=== PATIENT | female | born 1975 | race Caucasian/White ===

== ENCOUNTER → 2017-03-17 | Outpatient (CLI) | payer BC ==
[~2017-03-17] MED LIST: AMOXIL500 MG PO; BUPROBAN150 MG PO; FIORICET 50-301 EACH PO; HYDROCHLOROTH12.5 M3 PO; LABETALOL HCL100 MG PO; LORTAB 5-325 M1 EACH PO; MOTRIN800 MG PO; MULTIPLE VITAM1 EACH PO; PRILOSEC20 MG PO; SYNTHROID25 MCG PO; TOPAMAX100 MG PO; VICODIN,LORT1 TABLET PO; ZESTRIL,PRINIVI20 MG PO; ZOLOFT100 M1 PO; ZOLOFT100 MG PO; ZYRTEC10 M3 PO
== END | disposition home or self-care (01) ==
LOC: CDC 14:41
DX: I10 Essential (primary) hypertension (principal)
CPT/HCPCS: 93000

== ENCOUNTER 2017-03-28 05:30 | Day surgery (SDC) | payer BC ==
[~2017-03-28] VITALS: Ht 160 cm; Wt 99.8 kg
[~2017-03-28 05:30] MED LIST changes: +LEVOTHYROXINE50 MCG PO; +PROPRANOLOL HCL40 MG PO; +VITAMIN D5000 UNI1 PO
[2017-03-28 06:22] VITALS: BP 184/93
[2017-03-28 15:05] LABS: HEMATOCRIT 38.5 % (36.0-46.0); MCV 86.7 FL (83-99)
[2017-03-28 17:59] VITALS: BP 118/69
[2017-03-28 19:26] VITALS: BP 137/70
[2017-03-28 23:02] VITALS: BP 109/62
[2017-03-29 03:16] VITALS: BP 115/66
[2017-03-29 07:43] LABS: EOSINOPHIL (%) 0.2 % (0-5); HEMATOCRIT 33.5 % (36.0-46.0); IMMATURE GRANULOCYTE (%) 0.4 % (0.0-0.7); IMMATURE GRANULOCYTE COUNT 0.1 K/uL; INSTRUMENT ABS NEUTROPHIL CT 10.2 K/uL; LYMPHOCYTE COUNT 1.4 K/uL (1.0-2.8); MCH 29.5 PG (29.0-34.0); MCHC 33.4 G/DL (30.0-36.0); MCV 88.2 FL (83-99); MEAN PLAT.VOLUME 10.1 uM^3 (9.5-12.4); MONOCYTE (%) 8.3 % (3-12); MONOCYTE COUNT 1.1 K/uL (0-0.8); NEUTROPHIL (%) 80.1 % (45-76); NEUTROPHIL COUNT 10.2 K/uL (1.8-6.4); PLATELET COUNT 193 K/uL (156-360); RBC DIS.WIDTH-CV 12.9 % (11.8-14.6); RBC DIS.WIDTH-SD 41.4 % (39-53); WHITE BLOOD COUNT 12.7 K/uL (4.1-10.2)
[2017-03-29 08:00] LABS: ANION GAP 6 MEQ/L (2-14); CHLORIDE 102 MEQ/L (99-109); GFR ESTIMATE (CALCULATED) > 59 mL/min/; GLUCOSE 121 mg/dL (70-99); POTASSIUM 3.5 MEQ/L (3.7-5.4); SAMPLE HEMOLYSIS CHECK 0; SAMPLE ICTERIC CHECK 0; SAMPLE LIPEMIA CHECK 0; SODIUM 139 MEQ/L (136-147); UREA NITROGEN (BUN) 10 mg/dL (9-23)
[2017-03-29] MEDS ORDERED: ENDOCET 5-3251 EACH PO (08:26)
[2017-03-29] MEDS ORDERED: COLACE100 MG PO (08:26)
[2017-03-29] MEDS ORDERED: MOTRIN800 MG PO (08:26)
[2017-03-29 08:42] VITALS: BP 104/60
[2017-03-29 12:00] VITALS: BP 112/62
[2017-03-29 15:04] LABS: HEMATOCRIT 33.6 % (36.0-46.0); MCV 89.6 FL (83-99)
[2017-03-29 16:30] VITALS: BP 130/73
== END 2017-03-29 19:09 | disposition home or self-care (01) ==
LOC: SDC 05:30 → 2EASTP 10:55 → 2SOUTH 10:55 → SDC 14:40 → 2EASTP 17:35
PROVIDERS: Obstetrics & Gynecology
DX: D25.9 Leiomyoma of uterus, unspecified (principal); N80.0 Endometriosis of uterus; E66.01 Morbid (severe) obesity due to excess calories; Z68.39 Body mass index [BMI] 39.0-39.9, adult; I10 Essential (primary) hypertension; K21.9 Gastro-esophageal reflux disease without esophagitis; N39.3 Stress incontinence (female) (male); F32.9 Major depressive disorder, single episode, unspecified; E03.9 Hypothyroidism, unspecified
CPT/HCPCS: 80048; 85014; 85018; 85025; 88307; G0378; J0131; J0690; J1100; J1170; J1885; J2250; J2270; J2405; J3010; J7120; S0020

== ENCOUNTER 2018-04-05 13:27 | Emergency (ER) | payer BC ==
[~2018-04-05] VITALS: Ht 160 cm; Wt 103.5 kg
[~2018-04-05 13:27] MED LIST changes: +COLACE100 MG PO; +ENDOCET 5-3251 EACH PO
[2018-04-05 13:44] LABS: HEMATOCRIT 40.1 % (36.0-46.0); HEMOGLOBIN 14.3 G/DL (11.9-15.5); MCH 29.8 PG (29.0-34.0); MCHC 35.7 G/DL (30.0-36.0); MCV 83.5 FL (83-99); PLATELET COUNT 243 K/uL (156-360); RBC DIS.WIDTH-CV 12.5 % (11.8-14.6); RBC DIS.WIDTH-SD 37.9 % (39-53); WHITE BLOOD COUNT 9.7 K/uL (4.1-10.2)
[2018-04-05 13:53] LABS: ALBUMIN 4.5 g/dL (3.2-4.8); CHLORIDE 103 mEq/L (99-109); POTASSIUM 3.8 mEq/L (3.7-5.4); SODIUM 141 mEq/L (136-147)
[2018-04-05 13:55] LABS: GLUCOSE 99 mg/dL (70-99); TOTAL PROTEIN 7.7 g/dL (6.4-8.3)
[2018-04-05 13:57] LABS: TOTAL BILIRUBIN 0.5 mg/dL (0.0-1.0)
[2018-04-05 13:59] LABS: ALKALINE PHOSPHATASE 87 IU/L (3-129); CREATININE 0.8 mg/dL (0.6-1.3); GFR ESTIMATE (CALCULATED) > 59 mL/min/
[2018-04-05 14:00] LABS: UREA NITROGEN (BUN) 15 mg/dL (9-23)
[2018-04-05 14:01] LABS: AST (GOT) 45 IU/L (2-34)
[2018-04-05 14:02] LABS: ALT (GPT) 65 IU/L (3-49); LIPASE 7 U/L (1.0-51.0)
[2018-04-05 14:08] LABS: QUANTITATIVE HCG < 4.0 MIU/ML
[2018-04-05 15:18] LABS: APPEARANCE CLEAR ((CLEAR)); BILIRUBIN NEGATIVE; BLOOD NEGATIVE; COLOR YELLOW ((YELLOW)); GLUCOSE (STRIP) NEGATIVE; KETONES NEGATIVE; LEUKOCYTES NEGATIVE; NITRITE NEGATIVE; PROTEIN (STRIP) NEGATIVE; SPECIFIC GRAVITY 1.036 (1.000-1.030); UCUL ADDED? NO; UROBILINOGEN 0.2 MG/DL (0.2-1.0)
[2018-04-05] MEDS ORDERED: ZOFRAN ODT4 MG PO (15:59)
[2018-04-05] MEDS ORDERED: BENTYL10 MG PO (15:59)
[2018-04-05 16:38] VITALS: BP 165/104
== END 2018-04-05 16:40 | disposition home or self-care (01) ==
LOC: EME 13:27
PROVIDERS: Physician Assistant
DX: R10.31 Right lower quadrant pain (principal); K76.0 Fatty (change of) liver, not elsewhere classified; K21.9 Gastro-esophageal reflux disease without esophagitis; J45.909 Unspecified asthma, uncomplicated; E03.9 Hypothyroidism, unspecified; Z90.710 Acquired absence of both cervix and uterus
CPT/HCPCS: 74177; 80053; 81003; 83690; 84702; 85027; 99281; 99285; J1885; J2405; J7030